=== PATIENT | male | born 1970 | race Asian ===

== ENCOUNTER → 2020-10-19 | Outpatient (CLI) | payer OTHER ==
[~2020-10-19] MED LIST: NAPROSYN500 M1 PO; NORCO 5-325 TA1 EACH PO
== END ==
LOC: M.ULTRA 08:00
PROVIDERS: ATTEND Family Medicine
DX: N28.1 Cyst of kidney, acquired (principal); R31.9 Hematuria, unspecified; K76.0 Fatty (change of) liver, not elsewhere classified